=== PATIENT | female | born 1980 | race Caucasian/White ===

== ENCOUNTER → 2020-12-01 | Day surgery (SDC) | payer OTHER ==
[~2020-12-01] VITALS: Ht 172.7 cm; Wt 104.3 kg
[~2020-12-01] MED LIST: ASPIRIN325 MG PO; CELEXA20 MG PO; ESTRACE1 MG PO; FLEXERIL10 MG PO; IBU800 MG PO; IBUPROFEN800 MG PO; NAPROXEN500 MG PO; PERCOCET 5-3251 EACH PO; TAPAZOLE5 MG PO
[2020-12-01 06:35] LABS: HCT 36.8 % (37.0-47.0); HGB 12.5 g/dl (12.5-16.0); MCH 32.1 pg (25.0-31.0); MCV 94.6 fL (78.0-100.0); MPV 10.4 fL (6.0-9.5); RBC 3.89 M/uL (4.20-5.40); RDW 11.9 % (11.5-14.0); WBC 6.3 K/uL (4.0-10.5)
[2020-12-01 07:58] LABS: ALBUMIN 3.3 g/dL (3.4-5.0); BILIRUBIN - TOTAL 0.2 mg/dL (0.2-1.0); CREATININE 0.7 mg/dL (0.51-0.95); GLOBULIN (CALCULATION) 3.6 g/dL; POTASSIUM 3.9 mmol/L (3.5-5.1); TOTAL PROTEIN 6.9 g/dL (6.4-8.2)
== END | disposition home or self-care (01) ==
LOC: FAS 06:00
PROVIDERS: Orthopaedic Surgery
DX: S83.241A Other tear of medial meniscus, current injury, right knee, initial encounter (principal); S83.281A Other tear of lateral meniscus, current injury, right knee, initial encounter; M22.2X1 Patellofemoral disorders, right knee; M79.4 Hypertrophy of (infrapatellar) fat pad; K58.9 Irritable bowel syndrome, unspecified; G47.30 Sleep apnea, unspecified; E05.00 Thyrotoxicosis with diffuse goiter without thyrotoxic crisis or storm
CPT/HCPCS: 36415; 80053; 93005; J1100; J1170; J1885; J2250; J2405; J2704; J3010; J7120